=== PATIENT | male | born 1975 | race Caucasian/White ===

== ENCOUNTER 2020-08-15 10:17 | Emergency (ER) | payer MEDICARE, SELFPAY ==
--- NOTE | ~2020-08-15 | XR_ITS ---
EXAMINATION: XR knee RT min 4V DATE: 08/15/2020 11:15 INDICATION: Right knee pain TECHNIQUE: Four views of the right knee were obtained. COMPARISON: 11/26/2018 FINDINGS: There are changes of knee arthroplasty. Medial knee soft tissue swelling is present. There is a small chronic joint effusion. IMPRESSION: 1. Soft tissue swelling without acute osseous abnormality. 2. Small chronic knee joint effusion. Reviewed, dictated and finalized at location A. [facility]
--- NOTE | ~2020-08-15 | XR_ITS ---
EXAMINATION: XR hand RT min 3V INDICATION: Right hand pain TECHNIQUE: Three views of the right hand are obtained. COMPARISON: None available FINDINGS: Soft tissue swelling is seen medial to the fifth metacarpal. There is mild deformity of the fifth metacarpal which has the appearance of prior injury. The joint spaces are normal. IMPRESSION: 1. Deformity of the fifth metacarpal with the appearance of a prior injury. No definite acute osseous abnormality identified. Reviewed, dictated and finalized at location A. ST PATHOLOGIST
[2020-08-15 10:28] VITALS: BP 135/89; PULSE 88; RESP 24; TEMP 36.9; O2SAT 100
--- NOTE | 2020-08-15 10:39 | ED.GENADULT ---
HPI - General Adult General Chief complaint: Fall Stated complaint: right hand/right knee pain/from fall Time Seen by Provider: 08/15/20 10:40 Source: patient and RN notes reviewed Mode of arrival: ambulatory Limitations: no limitations History of Present Illness HPI narrative: 44-year-old male presents with complains of right knee, right hand, and right lower back pain after falling off his porch while carrying a couch 1 day ago. Angel says he smashed hand between the porch and couch, hit knee on porch, and believes he twisted causing pain to back when falling. Pain increase throughout the night. Heating pad, Aleve at bedtime, and Ibuprofen last this morning at 08:00 with little to no relief. No radiation of pain. No numbness or tingling, or bleeding. No swelling. No loss of mobility. Exacerbating factor consist of bearing weight on knee and movement and palpation of hand and knee. No new upper or lower extremity weakness. Exacerbating factors consist of prolong standing and bending. Denies problems with urinating or having a bowel movement, LBM this morning per patient and normal without blood. No flank pain, hematuria, or dysuria. Denies hitting head, loss of consciousness, seizure activity, syncopal episodes, dizziness. Remains active. The patient reports he have not been diagnosed with COVID-19. The patient reports he is not waiting for the results of a COVID-19 lab test. The patient reports he do not have fever, chills, weakness, or fatigue. The patient reports he do not have a new or worsening cough or shortness of breath. Denies chest pain. The patient reports he do not have any rhinorrhea, congestion, loss of taste, sore throat, nausea, vomiting, abdominal pain, and diarrhea. Tolerating po intake well. Denies recent traveling. Denies concerns for COVID-19 or exposures been home with limited outdoor exposure except for essential household needs and return home. At this time, patient is not suspected of having COVID-19. Some parts of this dictation were generated by voice recognition software and may contain typographical and/or grammatical inaccuracies. Related Data Home Medications Medication Instructions Recorded Confirmed gabapentin 600 mg PO TID 08/15/20 08/15/20 lisinopril 10 mg PO DAILY 08/15/20 08/15/20 metformin 1,000 mg PO TID 08/15/20 08/15/20 metoprolol succinate 50 mg PO DAILY 08/15/20 08/15/20 Allergies Allergy/AdvReac Type Severity Reaction Status Date / Time ketorolac Allergy Unknown HIVES Verified 08/15/20 11:04 Penicillins Allergy Dyspnea / Verified 08/15/20 11:04 SOB Review of Systems Review of Systems: Narrative: CONSTITUTIONAL: Denies fever, chills, sweats. EYES: Denies visual changes, redness, discharge. ENT: Denies rhinorrhea, congestion, sore throat, otalgia. CARDIOVASCULAR: Denies chest pain, palpitations, edema. RESPIRATORY: Denies dyspnea, wheezing, cough. GASTROINTESTINAL: Denies abdominal pain, nausea, vomiting, diarrhea. GENITOURINARY: Denies dysuria, hematuria, abnormal discharge SKIN: Denies rash or itching. MUSCULOSKELETAL: Denies acute back pain or myalgia. Complains of right knee, right hand, and right lower back pain. NEUROLOGIC: Denies numbness, or focal weakness. PSYCHIATRIC: Denies anxiety or depression. All other systems reviewed & are unremarkable except as noted in HPI and below. [facility] Past Medical History Medical History (Updated 08/15/20 @ 16:21 by KJ Conti) Arthritis Diabetes Type II Hypertension Surgical History Surgical History (Updated 08/15/20 @ 16:21 by KJ Conti) History of arthroscopic knee surgery History of knee surgery Angel says he has had 13 surgeries on right knee and 2 on left, currently waiting on the third RT total knee surgery Family History Family History (Updated 08/15/20 @ 11:11 by KJ Conti) Father Diabetes mellitus Hypertension Mother Diabetes mellitus Hyp
--- NOTE | 2020-08-15 11:59 | PC.NURSE ---
1150-Pt refused flash wrap to right hand.
== END 2020-08-15 11:56 | disposition home or self-care (01) ==
PROVIDERS: Emergency Provider Nurse Practitioner Family; PCP Family Medicine
DX: S80.01XA Contusion of right knee, initial encounter (principal); S60.221A Contusion of right hand, initial encounter; W17.89XA Other fall from one level to another, initial encounter; M54.5 Low back pain; F17.220 Nicotine dependence, chewing tobacco, uncomplicated; M19.90 Unspecified osteoarthritis, unspecified site; E11.9 Type 2 diabetes mellitus without complications; I10 Essential (primary) hypertension; Z96.651 Presence of right artificial knee joint
CPT/HCPCS: 73130; 73564; 99214; G0463

== ENCOUNTER → 2020-11-24 03:12 | Outpatient (CLI) | payer MEDICARE, MEDICAID, SELFPAY ==
[2020-11-24 20:35] LABS: SARS-CoV-2 RNA PCR Negative
== END ==
PROVIDERS: PCP Family Medicine; Visit Provider Internal Medicine Gastroenterology
DX: Z01.812 Encounter for preprocedural laboratory examination (principal); Z20.822 Contact with and (suspected) exposure to COVID-19
CPT/HCPCS: C9803; U0003; U0005

== ENCOUNTER 2020-11-24 09:19 | Outpatient (CLI) | payer MEDICARE, MEDICAID, SELFPAY ==
[2020-11-24 09:51] LABS: Hematocrit 49.4 % (42.0-52.0); Hemoglobin 16.8 g/dL (14.0-18.0); Mean Corpuscular Hemoglobin 31.2 pg (26-34); Mean Corpuscular Volume 91.7 fl (80-100); Mean Platelet Volume 9.1 fl (7.4-10.4); Platelet Count Result 325 k/mm3 (150-375); Red Blood Count 5.39 M/mm3 (4.6-6.20); Red Cell Distribution Width 13.1 % (11.5-14.5); White Blood Count 6.8 K/mm3 (4.5-10.0)
[2020-11-24 10:37] LABS: Potassium 4.4 mmol/L (3.4-5.0)
[2020-11-24 10:59] LABS: Alanine Aminotransferase 25 U/L (4-50); Albumin Level 4.6 g/dL (3.5-5.1); Alkaline Phosphatase 113 U/L (38-126); Anion Gap 6 mmol/L (8-16); Aspartate Amino Transferase 29 U/L (17-59); Bilirubin,Total 0.5 mg/dL (0.2-1.3); Blood Urea Nitrogen 13 mg/dL (9-20); CRP 0.5 mg/dL (<1.0); Calcium 9.2 mg/dL (8.4-10.2); Carbon Dioxide 29 mmol/L (22-30); Chloride 105 mmol/L (98-107); Estimated Glomerular Filt Rate > 60; Glucose 105 mg/dL (75-110); Sodium 140 mmol/L (137-145)
[2020-11-24 12:14] LABS: Erythrocyte Sedimentation Rate 24 mm/hr (0-20)
[2020-11-27 14:00] LABS: Tissue Transglutaminase IgA Ab 1 U/mL (<4); Tissue Transglutaminase IgG Ab 2 U/mL (<6)
== END 2020-11-24 09:20 | disposition home or self-care (01) ==
PROVIDERS: PCP Family Medicine; Visit Provider Internal Medicine Gastroenterology
DX: R10.9 Unspecified abdominal pain (principal); R11.2 Nausea with vomiting, unspecified; R63.4 Abnormal weight loss; R93.3 Abnormal findings on diagnostic imaging of other parts of digestive tract; R61 Generalized hyperhidrosis
CPT/HCPCS: 36415; 80053; 83516; 85027; 85652; 86140; C9803; U0003; U0005

== ENCOUNTER 2020-11-27 01:26 | Day surgery (SDC) | payer MEDICARE, MEDICAID, SELFPAY ==
[2020-11-23 16:02] VITALS: BMI 25.9
--- NOTE | 2020-11-26 09:47 | WPDANESEPPF ---
Anes - Initial Pre Proc Eval Procedure: Operation Date: 11/27/20 10:45 Proposed Procedures p Esophagogastroduodenoscopy & Colonoscopy - Glen Zamora MD Date/Time: 11/26/20 09:47 Surgeon: Glen Zamora MD Pre Op Diagnosis: Abnormal Wt.Loss, Abdominal Pain, Nausea,vomitting Patient Data Age: 45 Gender: M Height: 1.78 m Weight: 82 kg Allergies Allergy/AdvReac Type Severity Reaction Status Date / Time ketorolac Allergy Unknown HIVES Verified 11/27/20 09:24 Penicillins Allergy Dyspnea / Verified 11/27/20 09:24 SOB Home Medications Medication Instructions Recorded Confirmed Type gabapentin 600 mg PO TID 08/15/20 11/23/20 History lisinopril 10 mg tablet 10 mg PO DAILY #30 tablet 11/06/20 11/23/20 Rx metoprolol succinate 50 mg 50 mg PO DAILY #30 tablet 11/06/20 11/23/20 Rx tablet,extended release 24 hr cholecalciferol (vitamin D3) 1,250 1,250 mcg PO WEEKLY #10 cap 11/13/20 11/23/20 Rx mcg (50,000 unit) capsule omeprazole 20 mg capsule,delayed 20 mg PO BID 30 Days #60 cap 11/13/20 11/23/20 Rx release ondansetron 8 mg disintegrating 8 mg PO Q12H PRN #14 tablet 11/13/20 11/23/20 Rx tablet alprazolam 0.25 mg tablet 0.25 mg PO BID PRN 14 Days #30 11/23/20 11/23/20 Rx tablet hydrocodone 5 mg-acetaminophen 325 1 - 2 tablet PO Q4H PRN tablet 11/23/20 11/23/20 History mg tablet sodium,potassium,mag sulfates 17.5 See Rx Instructions PO .COMPLEX 11/23/20 11/23/20 Rx gram-3.13 gram-1.6 gram oral soln #354 ml Patient hx anesthesia problems: none Family hx anesthesia problems: none PMFSH Past Medical History Medical History (Updated 11/26/20 @ 09:47 by Cm Lyons DO) Abnormal computed tomography of cecum and terminal ileum Anxiety Arthritis Bipolar disorder Diabetes Type II Hypertension Weight loss Surgical History Surgical History History of arthroscopic knee surgery History of knee surgery Angel says he has had 13 surgeries on right knee and 2 on left, currently waiting on the third RT total knee surgery Family History Family History Father Diabetes mellitus Hypertension Cancer Depression Anxiety Thyroid disorder Mother Diabetes mellitus Hypertension Asthma Depression Anxiety Sibling Diabetes mellitus Hypertension Thyroid disorder Social History Social History Smoking status: Never smoker Smokeless tobacco user: chewing tobacco Second hand tobacco smoke exposure: Yes (Spouse) Alcohol intake: never Substance use: never Substance use type: does not use Living arrangements: with family Additional living arrangements comments: Spouse Additional occupation/education comments: Disable Gender identity (if verbalized by the patient): Male Spiritual care concerns: No Anes - Eval Final PreProcedure Day of Procedure 11/26/20 09:47 Patient weight: overweight Heart: regular rate and rhythm Lungs: clear to auscultation and normal air movement Airway: Mallampati scale class II Neurological: alert and oriented Last oral intake: >/= 8 hours ASA classification: III Emergent: no Anesthetic plan: proceed Anesthesia type and monitoring: general GIVS and standard monitoring Informed Consent: The patient's anesthetic plan and its attendant risks and benefits were discussed with the patient/family/POA. Questions were solicited and answers provided to the satisfaction of the patient/family/POA.
[2020-11-27 09:25] VITALS: BP 122/86; PULSE 89; RESP 18; TEMP 35.8; O2SAT 98
[2020-11-27] MEDS: LACTATED RINGERS 1,000 ML 150 ML IV CONT ×2 (09:30→11:10)
--- NOTE | 2020-11-27 10:39 | WPDHPUPDATE1 ---
History and Physical Update Update Date/Time: 11/27/20 10:39 History and Physical has been reviewed, including an updated exam of the patient. There are NO changes in the patient's condition. Risks, benefits, and alternatives have been discussed and questions answered. Patient agrees to proceed with procedure.
[2020-11-27 11:11] VITALS: BP 100/68; PULSE 66; RESP 20; O2SAT 97
[2020-11-27 11:21] VITALS: BP 106/71; PULSE 61; RESP 16; O2SAT 97
[2020-11-27 11:31] VITALS: BP 116/83; PULSE 60; RESP 16; O2SAT 97
== END 2020-11-27 11:50 | disposition home or self-care (01) ==
PROVIDERS: PCP Family Medicine; Visit Provider Internal Medicine Gastroenterology
PROC: 0DJ08ZZ Inspection of Upper Intestinal Tract, Via Natural or Artificial Opening Endoscopic (ICD-10-PCS; CPT 43235; principal; 2020-11-27 10:45)
DX: R19.7 Diarrhea, unspecified (principal); R10.30 Lower abdominal pain, unspecified; K29.50 Unspecified chronic gastritis without bleeding; B96.81 Helicobacter pylori [H. pylori] as the cause of diseases classified elsewhere; K44.9 Diaphragmatic hernia without obstruction or gangrene; R63.4 Abnormal weight loss; R93.3 Abnormal findings on diagnostic imaging of other parts of digestive tract; K64.8 Other hemorrhoids; Z80.0 Family history of malignant neoplasm of digestive organs; E11.9 Type 2 diabetes mellitus without complications; I10 Essential (primary) hypertension; F31.9 Bipolar disorder, unspecified; F41.9 Anxiety disorder, unspecified; F17.220 Nicotine dependence, chewing tobacco, uncomplicated
CPT/HCPCS: 45380; 43239; 88305; 88342; J2001; J2704; J7120